=== PATIENT | female | born 1960 | race Caucasian/White ===

== ENCOUNTER → 2018-04-14 | Outpatient (CLI) | payer OTHER ==
[~2018-04-14] MED LIST: ESTRADIOL 1 MG T1 M1; KEFLEX500 MG PO; MEDROLDOSEPACK PO
== END ==
LOC: M.RAD 11:14
DX: Z12.31 Encounter for screening mammogram for malignant neoplasm of breast (principal)

== ENCOUNTER → 2020-06-28 | Outpatient (CLI) | payer OTHER | LOC: M.RAD 09:40 | PROVIDERS: ATTEND Family Medicine | DX: Z12.31 Encounter for screening mammogram for malignant neoplasm of breast (principal) ==

== ENCOUNTER → 2021-05-30 | Outpatient (CLI) | payer OTHER | LOC: M.ULTRA 07:55 | PROVIDERS: ATTEND Family Medicine | DX: Z87.440 Personal history of urinary (tract) infections (principal) ==